=== PATIENT | male | born 1980 | race American Indian/Alaskan Native ===

== ENCOUNTER 2017-01-12 19:33 | Emergency (ER) | payer SELFPAY ==
[2017-01-12 19:54] VITALS: BP 148/92
--- NOTE | 2017-01-13 06:17 | Emergency Department Report ---
Entered by GALO SINCLAIR, acting as scribe for BARRETT EVANS PA. ED ENT HPI - General Chief complaint: Dental/Oral Stated complaint: TOOTHACHE Time Seen by Provider: 01/12/17 20:09 Source: patient Mode of arrival: Ambulatory Limitations: No Limitations - History of Present Illness Initial comments: 36 year old male with no significant PMHx presents to the ED c/o tooth #16 and # 17 pain that began 4 days ago, worsening today. Rates constant pain a 10/10 in severity and describes pain as aching in quality. Associated symptom include left ear pain, but he denies headache, fever, chills, nausea, vomiting, abdominal pain, SOB, and chest pain. Patient states pain is worsens with eating. Notes taking Orajel with no relief. NKDA. HIRSCH complaint: tooth pain Onset/Timin -: days(s) Location: tooth # (16 and 17) Severity: moderate Severity scale (0 -10): 10 Quality: aching Consistency: constant Improves with: none, other (used Orajel with no relief) Worsens with: eating Associated Symptoms: toothache. denies: fever, gum swelling, pain with swallowing, sore throat, discharge from ear, other (nausea, vomiting, chills, SOB, chest pain, and abdominal pain) - Related Data Previous Rx's Medication Instructions Recorded Last Taken Type Acetaminophen/Codeine [Tylenol 1 tab PO Q6H PRN #14 tab 01/12/17 Unknown Rx /Codeine # 3 tab] Penicillin Vk [Veetids TAB] 500 mg PO QID #56 tablet 01/12/17 Unknown Rx Allergies Allergy/AdvReac Type Severity Reaction Status Date / Time No Known Allergies Allergy Unverified 01/12/17 19:51 ED Dental HPI - General Chief complaint: Dental/Oral Stated complaint: TOOTHACHE Time Seen by Provider: 01/12/17 20:09 Source: patient Mode of arrival: Ambulatory Limitations: No Limitations - History of Present Illness complaint: tooth pain (#16 and #17) Onset/Timin -: days(s) Severity: moderate Quality: aching Consistency: constant Improves with: none, other (no relief using Orjel) Worsens with: chewing, movement Dental Associated Symptons: Yes: Earache. No: Headache, Sore Throat, Gum Swelling, Fever - Related Data Previous Rx's Medication Instructions Recorded Last Taken Type Acetaminophen/Codeine [Tylenol 1 tab PO Q6H PRN #14 tab 01/12/17 Unknown Rx /Codeine # 3 tab] Penicillin Vk [Veetids TAB] 500 mg PO QID #56 tablet 01/12/17 Unknown Rx Allergies Allergy/AdvReac Type Severity Reaction Status Date / Time No Known Allergies Allergy Unverified 01/12/17 19:51 ED Review of Systems Comment: All other systems reviewed and negative Constitutional: denies: chills, fever, other (gum swelling) ENT: ear pain (left), dental pain (tooth #16 and #17). denies: other (ear discharge) Respiratory: denies: orthopnea, shortness of breath Cardiovascular: denies: chest pain, palpitations Endocrine: no symptoms reported Gastrointestinal: denies: abdominal pain, nausea, vomiting Neurological: denies: headache, weakness ED Past Medical Hx - Past Medical History Previous Medical History?: No - Surgical History Past Surgical History?: No - Social History Smoking Status: Never Smoker Substance Use Type: None - Medications Home Medications: Home Medications Medication Instructions Recorded Confirmed Last Taken Type Acetaminophen/Codeine [Tylenol 1 tab PO Q6H PRN #14 tab 01/12/17 Unknown Rx /Codeine # 3 tab] Penicillin Vk [Veetids TAB] 500 mg PO QID #56 tablet 01/12/17 Unknown Rx ED Physical Exam - General Limitations: No Limitations General appearance: alert, in no apparent distress - Head Head exam: Present: atraumatic, normocephalic - Eye Eye exam: Present: normal appearance, EOMI Pupils: Present: normal accommodation - ENT ENT exam: Present: normal exam, mucous membranes moist, TM's normal bilaterally - Expanded ENT Exam Expanded Ear exam: Absent: other (No mastoid tenderness bilaterally) Mouth exam: Present: normal external inspection Teeth exam: Present: dental tenderness # (tooth #16 and 17). Absent: dental caries, other (abscess and drainage) Throat exam: Positive: normal inspection. Negative: tonsillar erythema, tonsillomegaly, tonsillar exudate - Neck Neck exam: Present: normal inspection, full ROM. Absent: tenderness, lymphadenopathy - Respiratory Respiratory exam: Present: normal lung sounds bilaterally. Absent: respiratory distress, wheezes - Cardiovascular Cardiovascular Exam: Present: regular rate, normal rhythm - GI/Abdominal GI/Abdominal exam: Present: soft. Absent: distended, tenderness, guarding, rebound, rigid - Extremities Exam Extremities exam: Present: normal inspection, full ROM - Back Exam Back exam: Present: normal inspection, full ROM - Neurological Exam Neurological exam: Present: alert, oriented X3, normal gait - Psychiatric Psychiatric exam: Present: normal affect, normal mood - Skin Skin exam: Present: warm, dry, intact. Absent: rash, erythema, ecchymosis ED Course Vital Signs 01/12/17 19:51 Temperature 98.2 F Pulse Rate 89 Respiratory 18 Rate Blood Pressure 148/92 Blood Pressure 148/92 [Right] O2 Sat by Pulse 100 Oximetry ED Medical Decision Making - Lab Data Vital Signs 01/12/17 19:51 Temperature 98.2 F Pulse Rate 89 Respiratory 18 Rate Blood Pressure 148/92 Blood Pressure 148/92 [Right] O2 Sat by Pulse 100 Oximetry - Medical Decision Making 36-year-old male presents today with dental pain. Referral for dentist has been provided. Patient is in no acute distress at this time. He will be discharged home and is encouraged to follow up with a primary care provider. He will be sent home on penicillin VK and Tylenol 3 and is encouraged to return to the emergency room for any worsening symptoms. ED Disposition Clinical Impression: Toothache Disposition: DISCHARGED TO HOME OR SELFCARE Is pt being admited?: No Does the pt Need Aspirin: No Condition: Stable Instructions: Toothache (ED) Additional Instructions: Follow-up with primary care provider and dentist. Return to the emergency department if symptoms worsen. Prescriptions: Acetaminophen/Codeine [Tylenol /Codeine # 3 tab] 1 tab PO Q6H PRN #14 tab PRN Reason: Pain Penicillin Vk [Veetids TAB] 500 mg PO QID #56 tablet Referrals: [facility] [Outside] - 3-5 Days [facility] [Outside] - 3-5 Days Forms: Work/School Release Form(ED) Time of Disposition: 20:25 This documentation as recorded by the YAHIR addison JASMINE,accurately reflects the service I personally performed and the decisions made by ,BARRETT EVANS PA.
== END 2017-01-12 20:56 | disposition home or self-care (01) ==
LOC: ED 19:33
DX: K08.89 Other specified disorders of teeth and supporting structures (principal)
CPT/HCPCS: 99281